=== PATIENT | female | born 1960 | race Caucasian/White ===

== ENCOUNTER → 2018-11-30 | Outpatient (CLI) | payer OTHER ==
[2018-11-30 12:05] VITALS: PULSE 88; RESP 16
[2018-11-30 12:33] VITALS: BP 111/57
--- NOTE | 2018-11-30 13:35 | P.PAINCN ---
History of Present Illness - Reason for Consult Consult date: 11/30/18 Evaluation and treatment - Chief Complaint Neck pain, chronic migraine - History of Present Illness Claribel is a very pleasant 58-year-old woman who presents from the thumb region. She has a chief complaint of neck pain and chronic migraine headaches. She has been evaluated and treated by neurologist in the thumb region a machine. She's been dealing with chronic migraines and neck pain for the past 30 years. She does not recall a mechanism of injury other than sports injury in her teenage years. She's been treated thoroughly by her neurologist, the placed her on Aimvog, she's received 3 doses of it and has already noticed some improvement. She averages greater than 15 episodes of chronic headache a month, typically 5-6 in a week. She describes her headaches as originating from the back of her head, radiating to the crown of her head and into the frontal aspect bilaterally. She does complain of eye pain as well as some ear pain during these headache episodes. She has complaints of constant pain on her right neck along the trapezius muscles but short of the shoulder. It is worse when she rotates her reflexes extends in certain ways. Her VAS on average is a 3-4 out of 10 in severity mostly in her neck on the right, when she has headaches they can be debilitating at times in between and 8-10 out of 10 in severity. She takes [id number] anti-inflammatories for pain control, she's never taken narcotics for these issues. Patient has never been to a painter bottom. She denies any bowel or bladder incontinence, any unstable or ataxic gait, upper or lower extremity weakness, visual disturbances. She does admit to some nausea and very infrequent episodes of vomiting with severe headaches. A 14 point review of systems was performed and negative except as mentioned in HPI. Past Medical History Past Medical History: GERD/Reflux, Musculoskeletal Disorder, Rheumatoid Arthritis (RA) Additional Past Medical History / Comment(s): migraines History of Any Multi-Drug Resistant Organisms: None Reported Past Surgical History: Section Additional Past Surgical History / Comment(s): C/S x2, hematoma removed from back, colonoscopy Past Anesthesia/Blood Transfusion Reactions: Postoperative Nausea & Vomiting (PONV) Past Psychological History: Anxiety, Depression Smoking Status: Never smoker Past Alcohol Use History: Rare Past Drug Use History: None Reported - Past Family History Mother Family Medical History: No Reported History Medications and Allergies Home Medications Medication Instructions Recorded Confirmed Type Cholecalciferol [Vitamin D3] 125 mcg PO DAILY 11/26/18 11/30/18 History Cyanocobalamin (Vitamin B-12) 5,000 mcg PO DAILY 11/26/18 11/30/18 History [Vitamin B-12] Ibuprofen [Motrin] 800 mg PO Q6H PRN 11/26/18 11/30/18 History Omeprazole [PriLOSEC] 20 mg PO AC-BRKFST 11/26/18 11/30/18 History Rizatriptan Benzoate [Maxalt] 10 mg PO DIRECTED PRN 11/26/18 11/30/18 History Topiramate [Trokendi Xr] 50 mg PO DAILY 11/26/18 11/30/18 History Venlafaxine HCl ER [Effexor Xr] 150 mg PO DAILY 11/26/18 11/30/18 History tiZANidine HCL [Zanaflex] 2 mg PO HS 11/26/18 11/30/18 History Erenumab-Aooe [Aimovig 70 mg SQ DIRECTED 11/30/18 11/30/18 History Autoinjector] Allergies Allergy/AdvReac Type Severity Reaction Status Date / Time No Known Allergies Allergy Verified 11/30/18 11:49 Physical Exam Vitals: Vital Signs Pulse Resp BP Pulse Ox 11/30/18 11:53 88 16 111/57 98 - Constitutional General appearance: average body habitus, cooperative, no acute distress - EENT Eyes: PERRLA, dentition normal, normal appearance ENT: NA/AT - Neck Neck: normal ROM - Cardiovascular Rhythm: regular Heart sounds: normal: S1, S2 - Musculoskeletal Musculoskeletal: gait normal, strength equal bilaterally - Psychiatric Psychiatric: A&O x's 3, appropriate affect, intact judgment & insight Cervical spine: Appropriate motor strength bilaterally and bicep tricep deltoid muscles. Reflexes and brachioradialis and biceps are equal and symmetrical.Positive facet loading on the right with reproducible pain into the right trapezius, negative Spurling's bilaterally. Negative Pena. Results Results: MRI cervical spine: 10/28/2018 1. Mild joint arthropathy and foraminal disc osteophyte at C3-C4 causing mild foraminal stenosis on the right greater than left. 2. Mild left facet arthropathy at C2-C3 causing mild left foraminal stenosis. Assessment and Plan Assessment: Assessment: 1. Cervicogenic headache 2. Cervical facet arthropathy 3. Cervicalgia 4. Cervical anteriolisthesis C3-C4 5. Chronic migraine headaches Plan: 1. Explanation: Diagnoses, prognoses, and multiple treatment options including but not limited to physical therapy, interventional therapies, adjuvant medical therapies, narcotic medication therapies, and surgery were discussed with the patient and all questions were answered to the patient's satisfaction. 2. Opioid agreement: Not required 3. Counseling: The patient was counseled extensively on SMOKING CESSATION, BODY MASS INDEX, EXERCISE. Specifically, the patient was instructed regarding the importance of smoking cessation, weight control, and exercise in the context of both chronic pain and overall health. 4. Procedures: We'll schedule for bilateral facet joint injections of C2-C3, C3-C4. 5. Consultations: None required 6. Investigations: Maps reviewed and appropriate with patient's history. 7. Medications: Continue prescribe medications from neurologist. 8. Disposition: Patient will return next available date for bilateral facet joint injections of C2-C3, C3-C4. PQRS measures: 1-Patient's medications are documented in the chart. 2-Tobacco use is negative, counseling given 3-Patient has not had a pneumococcal vaccine. 4-Advanced care planning discussed, patient unable to give. 5-Opioid contract not signed with the patient. 6-Pain positive, follow-up visit or procedure scheduled 7-Patient's blood pressure measured and documented, and patient will follow up with the primary care due to hypertension. 8-Patient's weight was measured, and body mass index WNL the normal limits, and counseling was done. Patient instructed to follow up with PCP. 9-Patient WAS NOT identified as an unhealthy alcohol user. PQRS Measure Charge Sheet PQRS Narrative: Smoking Status Never smoker Blood Pressure 111/57 Pain Intensity [Neck] 8 Scale Used Numeric (1 - 10) Hx Alcohol Use (MH) Yes Home Medications: Ambulatory Orders Cholecalciferol [Vitamin D3] 125 mcg PO DAILY 11/26/18 Cyanocobalamin (Vitamin B-12) [Vitamin B-12] 5,000 mcg PO DAILY 11/26/18 Ibuprofen [Motrin] 800 mg PO Q6H PRN 11/26/18 Omeprazole [PriLOSEC] 20 mg PO AC-BRKFST 11/26/18 Rizatriptan Benzoate [Maxalt] 10 mg PO DIRECTED PRN 11/26/18 Topiramate [Trokendi Xr] 50 mg PO DAILY 11/26/18 Venlafaxine HCl ER [Effexor Xr] 150 mg PO DAILY 11/26/18 tiZANidine HCL [Zanaflex] 2 mg PO HS 11/26/18 Erenumab-Aooe [Aimovig Autoinjector] 70 mg SQ DIRECTED 11/30/18
== END | disposition home or self-care (01) ==
LOC: PNWHC3 11:14
PROVIDERS: ATTEND Anesthesiology
DX: M54.2 Cervicalgia (principal); M43.12 Spondylolisthesis, cervical region; M46.92 Unspecified inflammatory spondylopathy, cervical region; G44.89 Other headache syndrome; G43.709 Chronic migraine without aura, not intractable, without status migrainosus; H57.10 Ocular pain, unspecified eye; H92.09 Otalgia, unspecified ear; R11.0 Nausea; R11.2 Nausea with vomiting, unspecified; Z79.899 Other long term (current) drug therapy
CPT/HCPCS: 99211

== ENCOUNTER 2018-12-14 08:03 | Day surgery (SDC) | payer OTHER ==
[2018-12-10 09:55] VITALS: BMI 26.4
[~2018-12-14 08:03] MED LIST: LACTATED RINGERS 1,000 ML IV SCH
[2018-12-14 08:41] VITALS: RESP 16; TEMP 97.8
[2018-12-14] MEDS ORDERED: LIDOCAINE 1% 20 ML VIAL (10MG/ML) FOR IV START INTRADERMA ONE (08:46)
[2018-12-14] MEDS ORDERED: ONDANSETRON 4 MG/2 ML VIAL IVP ONE (09:24)
[2018-12-14] MEDS ORDERED: IV FLUID CONTINUATION 1,000 ML IV ONE (10:13)
[2018-12-14 10:49] VITALS: BP 105/73; PULSE 89
--- NOTE | 2018-12-14 11:16 | P.PCN ---
Date of Procedure: 12/14/18 Procedure(s) Performed: PREOPERATIVE DIAGNOSIS: Cervical Spondylosis with Facet Arthropathy.without myelopathy POSTOPERATIVE DIAGNOSIS: Cervical Spondylosis, Facet Arthropathy. Without myelopathy PROCEDURES: Bilateral facet joint injections at C2-3 and C3-4, with fluoroscopic guidance ANESTHESIA: Local with 1% lidocaine; IV sedation with Versed, sedation time 29 minutes Fluoroscopy was used for the procedure and images were saved in the radiology portion of the chart. EBL: Minimal PROCEDURE INDICATION: The patient with neck pain secondary to cervical arthropathy unresponsive to more conservative treatments. PROCEDURE DESCRIPTION / TECHNIQUE: The patient was seen and identified in the preoperative area. Risks, benefits, complications, and alternatives were discussed with the patient, the patient agreed to proceed with the procedure and signed the consent. IV was started. Vital signs remained stable throughout the procedure. Patient was taken to the OR and time out was completed. The patient was placed in the prone position on the procedure table. A pillow was placed under the pat ients chest to increase the cervical interlaminar space. The cervical area was prepped and draped in the usual sterile fashion. A timeout was performed. Vital signs were closely monitored during the procedure. Conscious sedation was used during the procedure to decrease patients anxiety. Using AP fluoroscopy, the middle of the pedicles at above-mentioned levels was identified, marked, and localized with 1% lidocaine 0.2 ml at each level for skin and subcutaneous infiltration . Subsequently, a 22 G 3.5" Quinke spinal needle was advanced guided by AP and contralateral oblique fluoroscopy into the above-mentioned facet joints. 0.2 mL of Isovue-200 was injected at each level, revealing intra-articular facet spread. Subsequently, 0.75 mL of treatment solution was injected into each joint. Treatment solution consisted of dexamethasone 10 mg and 3 mL of 1% lidocaine. COMPLICATIONS: No acute complications. DISPOSITION / PLANS: The patient was placed in a supine position and transferred to the recovery area in a stable condition for observation and was discharged from the recovery room after meeting discharge criteria. Home discharge instructions given to the patient by the staff. The patient will follow up in clinic in 2 weeks.
--- NOTE | 2018-12-14 11:34 | FL ---
EXAMINATION TYPE: FL guided pain mgmt statistic DATE OF EXAM: 12/14/2018 FLUOROSCOPY Fluoroscopy time of 12 seconds was used during bilateral cervical facet injections. 3 image/s docume nt/s the procedure.
== END 2018-12-14 11:00 | disposition home or self-care (01) ==
LOC: ORPAIN 08:03
PROVIDERS: ATTEND Anesthesiology
DX: M47.812 Spondylosis without myelopathy or radiculopathy, cervical region (principal); M43.12 Spondylolisthesis, cervical region; G43.909 Migraine, unspecified, not intractable, without status migrainosus; K21.9 Gastro-esophageal reflux disease without esophagitis; M06.9 Rheumatoid arthritis, unspecified; F41.9 Anxiety disorder, unspecified; F32.9 Major depressive disorder, single episode, unspecified; Z79.899 Other long term (current) drug therapy
CPT/HCPCS: 64490; 64491; J2250; J1100; J2405; J3010; Q9966; 99152; 99153

== ENCOUNTER 2018-12-28 08:04 | Day surgery (SDC) | payer OTHER ==
[2018-12-24 15:41] VITALS: BMI 26.4
[2018-12-28 09:08] VITALS: RESP 18; TEMP 97.7
[2018-12-28] MEDS ORDERED: LIDOCAINE 1% 20 ML VIAL (10MG/ML) FOR IV START INTRADERMA ONE (09:15)
--- NOTE | 2018-12-28 10:15 | P.PCN ---
Date of Procedure: 12/28/18 Procedure(s) Performed: PREOPERATIVE DIAGNOSIS: Cervical Spondylosis with Facet Arthropathy.without myelopathy POSTOPERATIVE DIAGNOSIS: Cervical Spondylosis, Facet Arthropathy. Without myelopathy PROCEDURES: Bilateral facet joint injections at C2-3 and C3-4, with fluoroscopic guidance ANESTHESIA: Local with 1% lidocaine; moderate sedation with Versed and fentanyl, Fluoroscopy was used for the procedure and images were saved in the radiology portion of the chart. EBL: Minimal PROCEDURE INDICATION: The patient with neck pain secondary to cervical arthropathy unresponsive to more conservative treatments. PROCEDURE DESCRIPTION / TECHNIQUE: The patient was seen and identified in the preoperative area. Risks, benefits, complications, and alternatives were discussed with the patient, the patient agreed to proceed with the procedure and signed the consent. IV was started. Vital signs remained stable throughout the procedure. Patient was taken to the OR and time out was completed. The patient was placed in the prone position on the procedure table. A pillow was placed under the patients chest to increase the cervical interlaminar space. The cervical area was prepped and draped in the usual sterile fashion. A timeout was performed. Vital signs were closely monitored during the procedure. Conscious sedation was used during the procedure to decrease patients anxiety. Using AP fluoroscopy, the middle of the pedicles at above-mentioned levels was identified, marked, and localized with 1% lidocaine 0.2 ml at each level for skin and subcutaneous infiltration . Subsequently, a 22 G 3.5" Quinke spinal needle was advanced guided by AP and contralateral oblique fluoroscopy into the above-mentioned facet joints. 0.2 mL of Isovue-200 was injected at each level, revealing intra-articular facet spread. Subsequently, 0.75 mL of treatment solution was injected into each joint. Treatment solution consisted of dexamethasone 10 mg and 3 mL of 1% lidocaine. COMPLICATIONS: No acute complications. DISPOSITION / PLANS: The patient was placed in a supine position and transferred to the recovery area in a stable condition for observation and was discharged from the recovery room after meeting discharge criteria. Home discharge instructions given to the patient by the staff. The patient will follow up in clinic in 2 weeks.
[2018-12-28] MEDS ORDERED: IV FLUID CONTINUATION 1,000 ML IV ONE (10:25)
[2018-12-28 10:36] VITALS: BP 112/76; PULSE 86
--- NOTE | 2018-12-28 11:57 | FL ---
EXAMINATION TYPE: FL guided pain mgmt statistic DATE OF EXAM: 12/28/2018 CLINICAL HISTORY: Neck pain. TECHNIQUE: Fluoroscopy. COMPARISON: None. FINDINGS: Fluoroscopic guidance was provided during pain relief procedure performed by Dr. Felix . A total of 15 seconds of fluoroscopic time was utilized during the procedure and two spot images ar e acquired. Images acquired shows needle localization at multiple levels of the cervical spine. IMPRESSION: As Above.
== END 2018-12-28 10:59 | disposition home or self-care (01) ==
LOC: ORPAIN 08:04
PROVIDERS: ATTEND Student in an Organized Health Care Education/Training Program
DX: M47.812 Spondylosis without myelopathy or radiculopathy, cervical region (principal); G43.909 Migraine, unspecified, not intractable, without status migrainosus; K21.9 Gastro-esophageal reflux disease without esophagitis; M06.9 Rheumatoid arthritis, unspecified; Z98.890 Other specified postprocedural states; F41.9 Anxiety disorder, unspecified; F32.9 Major depressive disorder, single episode, unspecified; Z78.0 Asymptomatic menopausal state; Z79.899 Other long term (current) drug therapy
CPT/HCPCS: 64490; 64491; J2250; J1100; J3010; Q9966; 99152

== ENCOUNTER → 2019-01-26 | Outpatient (CLI) | payer OTHER ==
[2019-01-26 11:28] VITALS: BP 109/74; PULSE 78; RESP 16
--- NOTE | 2019-01-26 11:53 | P.PAINPG ---
Subjective Progress Note Date: 01/26/19 a follow-up visit for this 58 years old female with a chronic history of severe neck pain and headache, she is diagnosed with cervical spondylosis, status post bilateral facet injection at C2- 3 C3- 4, ,patient reported that her neck pain and headache was 9-10 over 10 before the first injection and dropped to 4-5/10 after the facet injection, and the pain was 8-9/10 before the second diagnostic block, and the pain decreased to 2-3/10 after the second facet injection,and she reported that her headache improved significantly and she was able to move move her neck freely after each injection, but the pain relief was only for short- term, currently she is complaining of neck pain and headache which is increased with any neck movement, she denies any numbness or tingling sensation in the upper extremity she denies any fever or night sweats, she denies any motor or sensory deficit. Objective - Vital Signs Vital signs: Vital Signs Temp Pulse 78 01/26/19 11:09 Resp 16 01/26/19 11:09 BP 109/74 01/26/19 11:09 Pulse Ox 99 01/26/19 11:09 - Exam Physical Examinations : -Constitutiona : Cooperative , not in acute distress . -HEENT : nech : supple , no Lymphadenopathy , normal thyroid size . : eyes : no ptosis , no icterus, no photophobia . - neurologic : Cranial nerve II to XII intact , no focal neurological deffecit . -psychatric : alert , oriented X 3 , appropriate affect , intact judgment and insight . -Lymphatic : no Lymphadenopathy . - musculoskeltal : Cervical Spine motor stregnth in the deltoid and biceps, normal right side , normal Left side motor stregnth biceps and the wrist extensors normal right side ,normal left side . motor stregnth in the triceps muscle . normal Right side , normal Left side deep tendon reflexes normal at the biceps , normal at Brachioradialis , normal at triceps. cervical facet loading test: Positive Bilaterally Spurling test negative bilaterally. Neck distraction test negative bilaterally. Ann sign negative bilaterally. Lumber spine moter stegnth lower extremities ,thigh and legs 5/5 Right side , 5/5 Left side Assessment and Plan Plan: assessment and plan= cervico spondylosis with cervical facet arthropathy, patient had positive results after each facet injections cervical area She will be a candidate to have radiofrequency thermocoagulation of the medial branch cervical area C2, C3, C4, to target The facet joint at C2-3 , C3-4 ,we'll schedule the right side first then the left side later on Time with Patient: Less than 30 PQRS Measure Charge Sheet Measure #130: Documentation of Current Meds in Medical Chart: Patient's medications documented in chart Measure #226: Tobacco Use: Screen & Cessation Intervention: Pt not a tobacco user Measure #111: Pneumonia Vaccination: Pneumococcal vaccine NOT administered or previously given Measure #47: Advance Care Plan: Advance care planning discussed & documented, pt chose/unable to give Measure #412: Opioid Treatment Agreement: No documentation of signed opioid treatment agreement Measure #408: Opioid Therapy Follow-up Evaluation: Patient had NO f/u eval minimum every 3 months during opioid therapy Measure #317: Preventitive Care & Scrn High Bld Press & F/U: Normal blood pressure, f/u not required Measure #128: Body Mass Index (BMI) Screening & Follow-up: BMI documented ABOVE normal parameters - f/u documented Measure #131: Pain Assessment & Follow-up: Pain positive & plan documented, Follow-up scheduled Measure #431: Unhealthy Alcohol Use Preventative Care & Scrn: Patient not identified as an unhealthy alcohol user PQRS Narrative: Smoking Status Never smoker Blood Pressure 109/74 Pain Intensity [Right Neck] 6 Scale Used Numeric (1 - 10) Hx Alcohol Use (MH) Yes Home Medications: Ambulatory Orders Cholecalciferol [Vitamin D3] 125 mcg PO DAILY 11/26/18 Cyanocobalamin (Vitamin B-12) [Vitamin B-12] 5,000 mcg PO DAILY 11/26/18 Ibuprofen [Motrin] 800 mg PO Q6H PRN 11/26/18 Omeprazole [PriLOSEC] 20 mg PO AC-BRKFST 11/26/18 Topiramate [Trokendi Xr] 50 mg PO DAILY 11/26/18 Venlafaxine HCl ER [Effexor Xr] 150 mg PO DAILY 11/26/18 tiZANidine HCL [Zanaflex] 2 mg PO HS 11/26/18 Erenumab-Aooe [Aimovig Autoinjector] 70 mg SQ Q30D 11/30/18 Imitrex (Unknown Dose) 1 tab PO DIRECTED PRN 01/22/19 Cetirizine HCl [Zyrtec] 5 mg PO HS 01/26/19 Controlled Substance Measures - Controlled Substance Measures Is patient prescribed a controlled substance at discharge?: No
== END | disposition home or self-care (01) ==
LOC: PNWHC3 10:50
PROVIDERS: ATTEND Specialist
DX: M47.812 Spondylosis without myelopathy or radiculopathy, cervical region (principal); M46.92 Unspecified inflammatory spondylopathy, cervical region; Z79.899 Other long term (current) drug therapy; Z79.891 Long term (current) use of opiate analgesic
CPT/HCPCS: 99211

== ENCOUNTER 2019-03-01 08:24 | Day surgery (SDC) | payer OTHER ==
[2019-02-25 15:34] VITALS: BMI 26.4
[~2019-03-01 08:24] MED LIST changes: +LIDOCAINE 4% (PF) 5 ML AMP ONE; +MIDAZOLAM 2 MG/2 ML VIAL ONE; +fentaNYL (PF) 50 MCG/ML 2 ML AMP ONE
[2019-03-01 09:11] VITALS: TEMP 97.8
[2019-03-01] MEDS ORDERED: LIDOCAINE 1% 20 ML VIAL (10MG/ML) FOR IV START INTRADERMA ONE (09:22)
[2019-03-01] MEDS ORDERED: ONDANSETRON 4 MG/2 ML VIAL IVP ONE (09:27)
--- NOTE | 2019-03-01 10:49 | FL ---
EXAMINATION TYPE: FL guided pain mgmt statistic DATE OF EXAM: 03/01/2019 CLINICAL HISTORY: Neck pain. TECHNIQUE: Fluoroscopy. COMPARISON: None. FINDINGS: Fluoroscopic guidance was provided during pain relief procedure performed by Dr. Orozco . A total of 10 seconds of fluoroscopic time was utilized during the procedure and 3 spot images are acqu ired. Images acquired shows needle localization at several levels in the cervical spine. IMPRESSION: As Above.
--- NOTE | 2019-03-01 10:58 | P.PCN ---
Date of Procedure: 03/01/19 Procedure(s) Performed: PREOPERATIVE DIAGNOSIS: Cervical spondylosis POSTOPERATIVE DIAGNOSIS: Same PROCEDURES: Radiofrequency thermocoagulation of the C2, C3, C4 medial branches with fluoroscopic guidance on the right side for facets C2-3 and C3-4 SURGEON: Osman Orozco M.D. ANESTHESIA: Moderate sedation with intravenous versed and fentanyl and local infiltration with lidocaine 1% 5 ml , sedation time 24 minutes Fluoroscopy was used for the procedure and fluoroscopic images were saved to the radiology portion of patient's chart. EBL: Minimal PROCEDURE INDICATION: The patient with low back pain secondary to cervical facet arthropathy who had more than 50% relief of pain with previous diagnostic cervical medial branch block. PROCEDURE DESCRIPTION / TECHNIQUE: The patient was seen and identified in the preoperative area. Risks, benefits, complications, including but not limited to risk of infection ,bleeding , allergic reactions to the medications and incomplete pain relief , and alternatives were discussed with the patient, the patient agreed to proceed with the procedure and signed the consent. IV was started. The operative site was marked. Patient was taken to the OR and time out was completed. The patient was placed in the prone position on the procedure table. The cervical area was prepped and draped in the usual sterile fashion. . Vital signs were closely monitored during the procedure .IV sedation was used during the procedure to decrease patients anxiety. Using AP and lateral fluoroscopy, a 25-gauge 3.5 inch finder needle was placed at the centroid of the first targeted level. Then, using AP and then oblique fluoroscopy, the waist corresponding to the connection between the superior and transverse articular processes of the above-mentioned levels were identified, marked, and localized with 1% lidocaine. Subsequently, an 18 [id number] radiofrequency cannula with a 10-mm active tip was advanced guided by fluoroscopy to the midpoint of the centroid on the lateral view of the corresponding cervical vertebral bodies at each site then underwent motor testing at 2.5 Hz and 0 to 3 volt with local stimulation, but no radicular symptoms down the arms. Then the sites underwent radiofrequency thermocoagulation at 80 degrees celsius for 90 seconds after injecting 0.5 ml of PF lidocaine 4%. A second round of radiofrequency ablation was performed after pulling each needle back by 1 mm. Cannulas were removed, the skin was cleansed and bandages were applied. COMPLICATIONS: No acute complications. DISPOSITION / PLANS: The patient was placed in a supine position and transferred to the recovery area in a stable condition for observation and was discharged from the recovery room after meeting discharge criteria. Home discharge instructions given to the patient by the staff. The patient will follow up in clinic in 2-4 weeks.
[2019-03-01 11:17] VITALS: BP 109/63; PULSE 71; RESP 16
[2019-03-01] MEDS ORDERED: IV FLUID CONTINUATION 1,000 ML IV ONE (11:17)
== END 2019-03-01 11:27 | disposition home or self-care (01) ==
LOC: ORPAIN 08:24
PROVIDERS: ATTEND Anesthesiology
DX: M47.892 Other spondylosis, cervical region (principal)
CPT/HCPCS: 64633; 64634; J2001; J2250; J2405; J3010; 99152; 99153

== ENCOUNTER 2019-03-24 07:24 | Day surgery (SDC) | payer OTHER ==
[2019-03-23 13:15] VITALS: BMI 26.8
[~2019-03-24 07:24] MED LIST changes: +BUPIVACAINE (PF) 0.5% 30 ML VIAL ONE; -LIDOCAINE 4% (PF) 5 ML AMP ONE; +methylPREDNISolone ACETATE 40 MG/ML 1 ML VIAL ONE
[2019-03-24 07:45] VITALS: TEMP 97.2
[2019-03-24] MEDS ORDERED: ONDANSETRON 4 MG/2 ML VIAL IVP ONE (07:50)
--- NOTE | 2019-03-24 07:58 | P.GSHP ---
History of Present Illness H&P Date: 03/24/19 This is 59 years years old female with a chronic history of severe neck pain and headache, she is diagnosed with cervical spondylosis, status post bilateral facet injection at C2- 3 C3- 4, ,patient reported that her neck pain and headache was 9-10 over 10 before the first injection and dropped to 4-5/10 after the facet injection, and the pain was 8-9/10 before the second diagnostic block, and the pain decreased to 2-3/10 after the second facet injection,and she reported that her headache improved significantly and she was able to move move her neck freely after each injection, but the pain relief was only for short- term, currently she is here today to have RFA of the medial branch cervical area on the left side Past Medical History Past Medical History: GERD/Reflux, Musculoskeletal Disorder, Rheumatoid Arthritis (RA) Additional Past Medical History / Comment(s): Migraines. History of Any Multi-Drug Resistant Organisms: None Reported Past Surgical History: Section Additional Past Surgical History / Comment(s): C/S X2, hematoma removed from back, colonoscopy, pain clinic procedures. Past Anesthesia/Blood Transfusion Reactions: Postoperative Nausea & Vomiting (PONV) Smoking Status: Never smoker - Past Family History Mother Family Medical History: No Reported History Medications and Allergies Home Medications Medication Instructions Recorded Confirmed Type Cholecalciferol [Vitamin D3] 125 mcg PO DAILY 11/26/18 03/23/19 History Cyanocobalamin (Vitamin B-12) 5,000 mcg PO DAILY 11/26/18 03/23/19 History [Vitamin B-12] Ibuprofen [Motrin] 800 mg PO Q6H PRN 11/26/18 03/23/19 History Omeprazole [PriLOSEC] 20 mg PO AC-BRKFST 11/26/18 03/23/19 History Topiramate [Trokendi Xr] 50 mg PO DAILY 11/26/18 03/23/19 History Venlafaxine HCl ER [Effexor Xr] 150 mg PO DAILY 11/26/18 03/23/19 History tiZANidine HCL [Zanaflex] 2 mg PO HS 11/26/18 03/23/19 History Erenumab-Aooe [Aimovig 70 mg SQ Q30D 11/30/18 03/24/19 History Autoinjector] Imitrex (Unknown Dose) 1 tab PO DIRECTED PRN 01/22/19 03/23/19 History Allergies Allergy/AdvReac Type Severity Reaction Status Date / Time No Known Allergies Allergy Verified 03/24/19 07:58 Surgical - Exam Vital Signs Temp Pulse Resp BP Pulse Ox 97.2 F L 78 17 129/75 100 03/24/19 07:44 03/24/19 07:44 03/24/19 07:44 03/24/19 07:44 03/24/19 07:44 -Constitutiona : Cooperative , not in acute distress .. - Respiratory : Chest clear to auscultations Bilaterally , no wheezing , no Rhonchi . - Cardiovascula : regular rate and rhythem , S1 , S2 , no S3 , no S4. - Gastrointestina : abdomen soft no tenderness , bowel sounds , no organomegally - neurologic : Cranial nerve II to XII intact , no focal neurological deffecit . -psychatric : alert , oriented X 3 , appropriate affect , intact judgment and insight . - musculoskeltal : Cervical Spine motor stregnth in the deltoid and biceps, normal right side , normal Left side Lumber spine moter stegnth lower extremities ,thigh and legs 5/5 Right side , 5/5 Left side Fabere test= positive Right , and positive LT . Assessment and Plan Plan: Assessment and plan= cervical spondylosis with cervical facet arthropathy patient is here today to have RFA of the medial branch cervical area Left side C2 ,C3 ,and C4 Time with Patient: Less than 30
--- NOTE | 2019-03-24 08:26 | P.PCN ---
Date of Procedure: 03/24/19 Procedure(s) Performed: PREOPERATIVE DIAGNOSIS: Cervical spondylosis with Facet Arthropathy without myelopathy. POSTOPERATIVE DIAGNOSIS: Cervical spondylosis with Facet Arthropathy without myelopathy. PROCEDURES: Radiofrequency thermocoagulation Left C2 ,C3, C4, medial branch with Fluroscopy Guidence(fluoroscopy was available in etiology department ) (to denervate the facet joint at Left C2-3 , C3- 4 ) ANESTHESIA: Local with Ropivacaine 0.5 % , moderate sedation with fentanyl 100 micrograms and Versed 2 mg EBL: Minimal PROCEDURE INDICATION: The patient with neck pain secondary to cervical arthropathy who had more than 50% relief of her pain with previous diagnostic cervical medial branch block. PROCEDURE DESCRIPTION / TECHNIQUE: The patient was seen and identified in the preoperative area. Risks, benefits, complications, and alternatives were d iscussed with the patient, the patient agreed to proceed with the procedure and signed the consent. IV was started. Vital signs remained stable throughout the procedure. Patient was taken to the OR and time out was completed. The patient was placed in the prone position on the procedure table. A pillow was placed under the patients chest to increase the cervical interlaminar space. The cervical area was prepped and draped in the usual sterile fashion. Critical pause was taken. Vital signs were closely monitored during the procedure. Conscious sedation was used during the procedure to decrease patients anxiety. Using cross-table lateral fluoroscopy, the centroid of the trapezoid of left C2 ,C3, C4, were identified, marked, and localized with 1% lidocaine. Subsequently, a 20 [id number] radiofrequency cannula with a 10-mm active tip was advanced guided by fluoroscopy to the centroid of the trapezoid of left C2 ,C3, C4, Needle tip position was confirmed at the centroid of the trapezoids of left C2 , C3, C4, with anteroposterior fluoroscopy. Each site then underwent sensory testing at 50 Hz and 0 to 1 volt and motor testing at 2 Hz and 0 to 3 volt with local stimulation, but no radicular symptoms down the arm. Thereafter the left C2 ,C3, C4 sites underwent radiofrequency thermocoagulation at 80 degrees celsius for 90 seconds after injecting 0.5 ml of PF Ropivacaine 0.5 %. After thermocoagulation, 1 ml of the block solution containing Depo-Medrol 40 mg and 3 mL of preservative-free normal saline was injected at the left C2 , C3, C4, levels after negative aspiration of CSF and blood and with no paresthesias. Cannulas were retracted while injecting lidocaine 1% until the needle is out. Skin was cleansed and bandages were applied. COMPLICATIONS: No acute complications. DISPOSITION / PLANS: The patient was placed in a supine position and transferred to the recovery area in a stable condition for observation and was discharged from the recovery room after meeting discharge criteria. Home discharge instructions given to the patient by the staff. The patient was reexamined prior to discharge. The patient will schedule a follow up in the clinic in 2-4 weeks.
[2019-03-24] MEDS ORDERED: IV FLUID CONTINUATION 1,000 ML IV ONE ×2 (08:29)
[2019-03-24 08:47] VITALS: BP 115/75; PULSE 81; RESP 16
--- NOTE | 2019-03-24 11:26 | FL ---
Fluoroscopy HISTORY: Pain 8 seconds fluoroscopy time supplied to the referring clinician. 2 intraoperative C-arm images docume nt the procedure. See dictated report from anesthesia.
== END 2019-03-24 09:10 | disposition home or self-care (01) ==
LOC: ORPAIN 07:24
PROVIDERS: ATTEND Specialist
DX: G89.29 Other chronic pain (principal); M47.812 Spondylosis without myelopathy or radiculopathy, cervical region; K21.9 Gastro-esophageal reflux disease without esophagitis; M06.9 Rheumatoid arthritis, unspecified; G43.909 Migraine, unspecified, not intractable, without status migrainosus; Z79.1 Long term (current) use of non-steroidal anti-inflammatories (NSAID); Z79.899 Other long term (current) drug therapy; Z78.0 Asymptomatic menopausal state
CPT/HCPCS: 64633; 64634; J2250; J1030; J2405; J3010; 99152

== ENCOUNTER → 2019-04-12 | Outpatient (CLI) | payer OTHER ==
[2019-04-12 11:26] VITALS: BP 110/67; PULSE 88; RESP 16
--- NOTE | 2019-04-13 13:02 | P.PAINPG ---
Subjective Progress Note Date: 04/12/19 This is a a follow-up visit for this 59 year old female with a chronic history of severe neck pain and headache, she is diagnosed with cervical spondylosis, status post bilateral radiofrequency ablation at C2- 3 C3- 4, right side done on 03/01/2019 and left side done on 03/24/2019. She returns today for follow- up. She reports excellent benefit from procedures, particularly the right side. She does report some ongoing procedure-related pain from the left-sided procedure and states that this procedure was more painful than the right side. She is quite upset about this. Pain does not radiate into the upper extremity. She does report that since the procedure, she has had only 1 severe migraine headache and is extremely pleased with the results so far. Her current pain complaint is on the left side of her neck, and the location of her procedure, rated as 4/10. She is currently using ice and Motrin for pain. Review of systems is negative for chest pain, shortness of breath, new onset weakness, numbness/tingling, abdominal pain, malaise, fever, night sweats, chills, homicidal or suicidal ideation, or bowel or bladder incontinence. Objective Physical exam: Vitals: Reviewed in EMR GENERAL: Well appearing, in no acute distress PSYCH: Mood and affect is appropriate. Awake, alert, and oriented SKIN: Skin color, texture, turgor normal, no rashes or lesions HEENT: Normocephalic, atraumatic. EOM intact CV: No pedal edema RESP: Respirations are unlabored, no audible wheezing GI: Abdomen non-distended MUSCULOSKELETAL: Bilateral upper extremity strength is normal and symmetric. No atrophy or tone abnormalities are noted. Neck: Tenderness to palpation over the cervical paraspinous muscles on the left side, with palpable trigger points. Spurling negative, Axial Loading Test negative, Pena's sign negative. No obvious deformity or signs of trauma. Normal cervical lordotic curve and normal cervical spine range of motion Extremities: Peripheral joint ROM is full and pain free without obvious instability or laxity in all four extremities. No edema or skin discolorations noted. Gait: Gait is normal NEUR: Bilateral upper extremity coordination and muscle stretch reflexes are physiologic and symmetric. No loss of sensation is noted. Assessment and Plan Plan: assessment and plan= cervical spondylosis with cervical facet arthropathy, patient recently underwent radiofrequency thermocoagulation of the medial branch cervical area C2, C3, C4, bilaterally with excellent ongoing relief. Patient does have some palpable trigger points in left cervical paraspinals, consistent with cervical myofascial pain syndrome. I gave her a prescription for physical therapy to focus on neck traction and home exercises. I also counseled her to take [id number] Tylenol, not more than 3 g per day as well as [id number]-hew nter lidocaine patches. If pain does not resolve in 1-2 weeks, the patient was instructed to call our office and at that point we can schedule left-sided trigger point injections to the cervical paraspinals, trapezius and rhomboid. Follow-up: When necessary PQRS Measure Charge Sheet Measure #130: Documentation of Current Meds in Medical Chart: Patient's medi cations documented in chart Measure #226: Tobacco Use: Screen & Cessation Intervention: Pt not a tobacco user Measure #111: Pneumonia Vaccination: Pneumococcal vaccine NOT administered or previously given Measure #47: Advance Care Plan: Advance care planning discussed & documented, pt chose/unable to give Measure #412: Opioid Treatment Agreement: No documentation of signed opioid treatment agreement Measure #408: Opioid Therapy Follow-up Evaluation: Patient had NO f/u eval minimum every 3 months during opioid therapy Measure #317: Preventitive Care & Scrn High Bld Press & F/U: Normal blood pressure, f/u not required Measure #128: Body Mass Index (BMI) Screening & Follow-up: BMI documented ABOVE normal parameters - f/u documented Measure #131: Pain Assessment & Follow-up: Pain positive & plan documented, Follow-up scheduled Measure #431: Unhealthy Alcohol Use Preventative Care & Scrn: Patient not identified as an unhealthy alcohol user PQRS Measure Charge Sheet PQRS Narrative: Smoking Status Never smoker Pain Intensity [Left Neck] 7 Scale Used Numeric (1 - 10) Hx Alcohol Use (MH) Yes Home Medications: Ambulatory Orders Cholecalciferol [Vitamin D3] 125 mcg PO DAILY 11/26/18 Cyanocobalamin (Vitamin B-12) [Vitamin B-12] 5,000 mcg PO DAILY 11/26/18 Ibuprofen [Motrin] 800 mg PO Q8H PRN 11/26/18 Omeprazole [PriLOSEC] 20 mg PO AC-BRKFST 11/26/18 Topiramate [Trokendi Xr] 50 mg PO DAILY 11/26/18 Venlafaxine HCl ER [Effexor Xr] 150 mg PO DAILY 11/26/18 tiZANidine HCL [Zanaflex] 2 mg PO HS 11/26/18 Erenumab-Aooe [Aimovig Autoinjector] 70 mg SQ Q30D 11/30/18 Imitrex (Unknown Dose) 1 tab PO DIRECTED PRN 01/22/19 Controlled Substance Measures - Controlled Substance Measures Is patient prescribed a controlled substance at discharge?: No
== END | disposition home or self-care (01) ==
LOC: PNWHC3 10:55
PROVIDERS: ATTEND Anesthesiology
DX: G89.29 Other chronic pain (principal); M47.816 Spondylosis without myelopathy or radiculopathy, lumbar region; M79.18 Myalgia, other site; Z98.890 Other specified postprocedural states; Z79.899 Other long term (current) drug therapy
CPT/HCPCS: 99211

== ENCOUNTER → 2020-07-31 | Outpatient (CLI) | payer BC ==
[2020-07-31 09:06] VITALS: BP 121/83; PULSE 88; RESP 20; TEMP 97.9
--- NOTE | 2020-07-31 09:32 | P.PN ---
Subjective Progress Note Date: 07/31/20 This is follow-up visit for this 60 years old female with a chronic history of severe neck pain and headache, she is diagnosed with cervical spondylosis with cervical facet arthropathy with, early 2019 we have done bilateral facet RFA at C2- 3 , C3- 4, ,patient reported that her neck pain and headache proved significantly, and her intake of pain medication and improved significantly after the RFA, ,and she reported that her headache improved significantly and she was able to move move her neck freely after each injection, pain relief lasted for more than one year, and over the last few weeks she started having severe neck pain and headache mainly on the right side of the, which is increased with any neck movement, she denies any numbness or tingling sensation in the upper extremity she denies any fever or night sweats, she denies any motor or sensory deficit. Patient tried the homicide and physical therapy at home without any significant benefit, and she thought that the current pain medication is not helping to improve her headache and neck pain Physical Examinations : -Constitutiona : Cooperative , not in acute distress . -HEENT : nech : supple , no Lymphadenopathy , normal thyroid size . : eyes : no ptosis , no icterus, no photophobia . - neurologic : Cranial nerve II to XII intact , no focal neurological deffecit . -psychatric : alert , oriented X 3 , appropriate affect , intact judgment and insight . -Lymphatic : no Lymphadenopathy . - musculoskeltal : Cervical Spine motor stregnth in the deltoid and biceps, normal right side , normal Left side motor stregnth biceps and the wrist extensors normal right side ,normal left side . motor stregnth in the triceps muscle . normal Right side , normal Left side deep tendon reflexes normal at the biceps , normal at Brachioradialis , normal at triceps. cervical facet loading test: Positive on the right Spurling test negative bilaterally. Neck distraction test negative bilaterally. Ann sign negative bilaterally. Lumber spine moter stegnth lower extremities ,thigh and legs 5/5 Right side , 5/5 Left side Assessment and Plan Plan: assessment and plan= cervico spondylosis with cervical facet arthropathy, She had excellent pain relief after RFA done beginning of 2019 , and the relief lasted more than one year and she is currently having symptoms only on the right side, she will be in good candidate to RFA right-sided medial branch cervical area at C2, C3, C4 MARVIN Time with Patient: Less than 30 PQRS Measure Charge Sheet Measure #130: Documentation of Current Meds in Medical Chart: Patient's medications documented in chart Measure #226: Tobacco Use: Screen & Cessation Intervention: Pt not a tobacco user Measure #111: Pneumonia Vaccination: Pneumococcal vaccine NOT administered or previously given Measure #47: Advance Care Plan: Advance care planning discussed & documented, pt chose/unable to give Measure #412: Opioid Treatment Agreement: No documentation of signed opioid treatment agreement Measure #408: Opioid Therapy Follow-up Evaluation: Patient had NO f/u eval minimum every 3 months during opioid therapy Measure #317: Preventitive Care & Scrn High Bld Press & F/U: Normal blood pressure, f/u not required Measure #128: Body Mass Index (BMI) Screening & Follow-up: BMI documented ABOVE normal parameters - f/u documented Measure #131: Pain Assessment & Follow-up: Pain positive & plan documented, Follow-up scheduled Measure #431: Unhealthy Alcohol Use Preventative Care & Scrn: Patient not identified as an unhealthy alcohol user PQRS Narrative: Objective - Vital Signs Vital signs: Vital Signs Temp 97.9 F 07/31/20 09:03 Pulse 88 07/31/20 09:03 Resp 20 07/31/20 09:03 BP 121/83 07/31/20 09:03 Pulse Ox 98 07/31/20 09:03
== END ==
LOC: PNWHC3 08:49
PROVIDERS: ATTEND Specialist
DX: M47.812 Spondylosis without myelopathy or radiculopathy, cervical region (principal)
CPT/HCPCS: 99211

== ENCOUNTER 2020-08-25 07:01 | Day surgery (SDC) | payer BC ==
[2020-08-24 08:48] VITALS: BMI 27.9
[~2020-08-25 07:01] MED LIST changes: -BUPIVACAINE (PF) 0.5% 30 ML VIAL ONE; -MIDAZOLAM 2 MG/2 ML VIAL ONE; -fentaNYL (PF) 50 MCG/ML 2 ML AMP ONE; -methylPREDNISolone ACETATE 40 MG/ML 1 ML VIAL ONE
[2020-08-25 07:27] VITALS: TEMP 98.4
[2020-08-25] MEDS ORDERED: MIDAZOLAM 2 MG/2 ML VIAL ONE (08:03)
[2020-08-25] MEDS ORDERED: fentaNYL (PF) 50 MCG/ML 2 ML AMP ONE (08:03)
[2020-08-25] MEDS ORDERED: TRIAMCINOLONE ACETONIDE 40 MG/ML 1 ML VIAL ONE (08:04)
[2020-08-25] MEDS ORDERED: ROPIVACAINE 5MG/ML 20ML VIAL ONE (08:04)
[2020-08-25] MEDS ORDERED: LIDOCAINE 1% INJ 10MG/ML (20 ML MDV) ONE (08:04)
--- NOTE | 2020-08-25 08:37 | P.PCN ---
Date of Procedure: 08/25/20 Surgeon: Preethi High Pathology: none sent Condition: stable Disposition: PACU Description of Procedure: PREOPERATIVE DIAGNOSIS: Cervical spondylosis POSTOPERATIVE DIAGNOSIS: Same PROCEDURES: Radiofrequency thermocoagulation of the C2, C3, C4 medial branches with fluoroscopic guidance on the right side for facets C2-3 and C3-4 SURGEON: Osman Orozco M.D. ANESTHESIA: Moderate sedation with intravenous versed and fentany might anesthesia Department l and local infiltration with lidocaine 1% 5 ml Fluoroscopy was used for the procedure and fluoroscopic images were saved to the radiology portion of patient's chart. EBL: Minimal PROCEDURE INDICATION: The patient with low back pain secondary to cervical facet arthropathy who had more than 50% relief of pain with previous diagnostic cervical medial branch block. PROCEDURE DESCRIPTION / TECHNIQUE: The patient was seen and identified in the preoperative area. Risks, benefits, complications, including but not limited to risk of infection ,bleeding , allergic reactions to the medications and incomplete pain relief , and alternatives were discussed with the patient, the patient agreed to proceed with the procedure and signed the consent. IV was started. The operative site was marked. Patient was taken to the OR and time out was completed. The patient was placed in the prone position on the procedure table. The cervical area was prepped and draped in the usual sterile fashion. . Vital signs were closely monitored during the procedure .IV sedation was used during the procedure to decrease patients anxiety. Using AP and lateral fluoroscopy, a 25-gauge 3.5 inch finder needle was placed at the centroid of the first targeted level. Then, using AP and then oblique fluoroscopy, the waist corresponding to the connection between the superior and transverse articular processes of the above-mentioned levels were identified, marked, and localized with 1% lidocaine. Subsequently, an 20 -tw radiofrequency cannula with a 10-mm active tip was advanced guided by fluoroscopy to the midpoint of the centroid on the lateral view of the corresponding cervical vertebral bodies at each site then underwent motor testing at 2.5 Hz and 0 to 3 volt with local stimulation, but no radicular symptoms down the arms. Then the sites underwent radiofrequency thermocoagulation at 80 degrees celsius for 90 seconds after injecting 0.5 ml of PF lidocaine 1%. Cannulas were removed, the skin was cleansed and bandages were applied. COMPLICATIONS: No acute complications. DISPOSITION / PLANS: The patient was placed in a supine position and transferred to the recovery area in a stable condition for observation and was discharged from the recovery room after meeting discharge criteria. Home discharge instructions given to the patient by the staff. The patient will follow up in clinic in 2-4 weeks.
--- NOTE | 2020-08-25 08:54 | FL ---
EXAMINATION TYPE: FL guided pain mgmt statistic DATE OF EXAM: 08/25/2020 HISTORY: Fluoroscopy time 14 seconds of fluoroscopy provided. IMPRESSION: 1. Fluoroscopy time.
[2020-08-25 09:04] VITALS: BP 114/77; PULSE 60; RESP 16
== END 2020-08-25 09:23 | disposition home or self-care (01) ==
LOC: ORPAIN 07:01
PROVIDERS: ATTEND Anesthesiology
DX: M47.812 Spondylosis without myelopathy or radiculopathy, cervical region (principal); G43.909 Migraine, unspecified, not intractable, without status migrainosus; F41.9 Anxiety disorder, unspecified; Z79.1 Long term (current) use of non-steroidal anti-inflammatories (NSAID); Z79.899 Other long term (current) drug therapy; M06.9 Rheumatoid arthritis, unspecified
CPT/HCPCS: 64633; 64634; J2250; J3301; J2001; J3010; J2795

== ENCOUNTER → 2020-10-25 | Outpatient (CLI) | payer BC ==
[2020-10-25 07:36] VITALS: BP 102/57; PULSE 105; RESP 18; TEMP 98.3
--- NOTE | 2020-10-25 07:53 | P.PN ---
Subjective Progress Note Date: 10/25/20 This is a 60-year-old lady with history of migraine headache, neck and right shoulder pain. The patient had radiofrequency frequency ablation of the medial branches at the C2, C3 and third occipital nerve on the right side a few weeks ago. This injection gave her good relief of pain for about one month only in the patient has been getting back to baseline. The patient uses cold pads on the right neck area to help with the pain she takes Motrin also she also takes Imitrex for her migraine headaches. The patient continues to do physical therapy exercises at home. She denies any weakness in the upper or lower extremities or any paresthesia. She does feel some cracking sound when she turns her neck to the right side. Patient denies new-onset weakness, bowel/bladder incontinence, or any other signs or symptoms of cauda equina syndrome. There are no signs of acute intoxication, and no indications of medication diversion or overuse. In addition to above, 13-point review of systems is also negative for chest pain, shortness of breath, changes in vision, changes in hearing, new onset weakness, abdominal pain, diarrhea, extreme fatigue, malaise, fever, skin changes, homicidal or suicidal ideation, or bowel or bladder incontinence. Vital Signs: Reviewed in EMR Gen: AAOx3, NAD HEENT: PERRLA,hearing grossly normal Pulm: resp unlabored Neck: supple, trachea midline Neuro exam of the upper extremities: Within normal limits Tenderness in the paravertebral musculature: Positive on the right side of cervical spine on the right shoulder area Range of motion of the cervical spine is within normal limits Neuro: CN II-XII grossly intact, Imaging: Reviewed in EMR/chart Assessment: Migraine headache Myofascial pain Cervical spondylosis without myelopathy Plan: 1. Explanation: When patients on opioids, opioid and psychological risk scores were reviewed. Diagnoses, prognoses, and multiple treatment options including but not limited to physical therapy, interventional therapies, adjuvant medical therapies, narcotic medication therapies, and surgery were discussed with the patient and all questions were answered to the patient's satisfaction. 2. Opioid agreement:When patients are prescribed opoids through our clinic, opioid agreement is signed with the patient and the patient is warned not to use opioids while driving or before driving and not to combine opioids with benzodiazepines or alcohol. 3. Counseling: When patient is smoking or obese, the patient was counseled extensively on SMOKING CESSATION, BODY MASS INDEX, EXERCISE. Specifically, the patient was instructed regarding the importance of smoking cessation, obesity, and exercise in the context of both chronic pain and overall health. 4. Procedures: The patient may benefit from getting trigger point injection in the right cervical paravertebral musculature and also on the right shoulder musculature including the supraspinatus and possibly infraspinatus. If the trigger point injection does not help control her pain and she might be a candidate for a diagnostic cervical medial branch block for the lower levels in her cervical spine on the right side including C5, C6 and C7. 5. Consultations: None 6. Investigations: None 7. Medications: Continue Imitrex for her migraine headache and Motrin for her myofascial and arthritic pain. 8. Disposition: Proceed with the above-mentioned procedure as soon as possible 9. Maps were reviewed and were appropriate. PQRS measures: 1-Patient's medications are documented in the chart. 2-Tobacco use is negative, counseling given 3-Patient has had a pneumococcal vaccine. 4-Advanced care planning discussed, patient unable to give 5-Opioid contract signed with the patient. 6-Pain positive, follow-up visit or procedure scheduled 7-Patient's blood pressure measured and documented above/ normal limits. The patient will follow up with his primary care physician. 8-Patient's weight was measured, and body mass index ABOVE the normal limits, and counseling was done. Patient instructed to follow up with PCP. 9-Patient WAS NOT identified as an unhealthy alcohol user. Objective - Vital Signs Vital signs: Vital Signs Temp 98.3 F 10/25/20 07:31 Pulse 105 H 10/25/20 07:31 Resp 18 10/25/20 07:31 BP 102/57 10/25/20 07:31 Pulse Ox 98 10/25/20 07:31 Intake & Output 10/24/20 10/25/20 10/25/20 18:59 06:59 18:59 Weight 60.328 kg
== END ==
LOC: PNWHC3 07:15
PROVIDERS: ATTEND Anesthesiology
DX: M47.812 Spondylosis without myelopathy or radiculopathy, cervical region (principal); G43.909 Migraine, unspecified, not intractable, without status migrainosus; M79.18 Myalgia, other site
CPT/HCPCS: 99211

== ENCOUNTER 2020-11-21 11:53 | Day surgery (SDC) | payer BC ==
[2020-11-20 12:44] VITALS: BMI 25.1
[2020-11-21 12:57] VITALS: TEMP 97.7
[2020-11-21] MEDS ORDERED: LACTATED RINGERS 1,000 ML IV ONE (12:59)
[2020-11-21] MEDS ORDERED: fentaNYL (PF) 50 MCG/ML 2 ML AMP ONE (13:04)
[2020-11-21] MEDS ORDERED: MIDAZOLAM 2 MG/2 ML VIAL ONE (13:04)
[2020-11-21] MEDS ORDERED: ROPIVACAINE 5MG/ML 20ML VIAL ONE (13:04)
[2020-11-21] MEDS ORDERED: methylPREDNISolone ACETATE 40 MG/ML 1 ML VIAL ONE (13:04)
[2020-11-21] MEDS ORDERED: LACTATED RINGERS 1,000 ML IV SCH (13:15)
[2020-11-21] MEDS ORDERED: IV FLUID CONTINUATION 925 ML IV ONE (13:22)
[2020-11-21 13:26] VITALS: RESP 20
--- NOTE | 2020-11-21 13:39 | P.PCN ---
Date of Procedure: 11/21/20 Description of Procedure: Pre and postop diagnosis: Myofascial pain syndrome Procedure: Trigger point injections X 6 Muscle group x right-sided trapezius, cervical paraspinal Surgeon: Kaykay Davidson Anesthesia: None Complications: None Estimated blood loss: None Specimen removed: None Procedure indications: Patient had a history of myofascial pain syndrome. Patient tried conservative therapy. Came here for intervention procedure for better pain relief. Procedure description: Patient was seen and identified in the holding area risk benefits competitions alternative discussed with the patient. Patient agreed to proceed for the procedure signed the consent. Patient taken to the procedure area. Timeout was completed. A total number of 6 - trigger point area was marked with a sterile marker. After [id number] used to clean the area. Critical pause was taken. Using 25-gauge 1-1/[address]. He entered in each market site one mL of block solution injected at each level. The block solution containing 12 ml of 0.5% preservative-free ropivacaine with Depo-Medrol 80 MG. Needle removed intact skin cleaned and Band-Aid applied. Patient tolerated the procedure well. Disposition: Patient discharge home after meeting the discharge criteria from the recovery. Patient scheduled to follow up with the pain clinic in 4 weeks for follow-up visit.
[2020-11-21 13:50] VITALS: BP 118/78; PULSE 87
== END 2020-11-21 13:48 | disposition home or self-care (01) ==
LOC: ORPAIN 11:53
DX: M79.18 Myalgia, other site (principal)
CPT/HCPCS: 20553; J2250; J1030; J3010; J2795